=== PATIENT | female | born 1990 | race Caucasian/White ===

== ENCOUNTER 2018-02-08 09:08 | Outpatient (CLI) | payer BC ==
[~2018-02-08] VITALS: Ht 167.6 cm; Wt 86.2 kg
[2018-02-09] MEDS ORDERED: OXYC-197 PO (12:40)
== END 2018-02-08 12:36 ==
LOC: PREOP 09:08
PROVIDERS: ATTEND Obstetrics & Gynecology
DX: Z01.818 Encounter for other preprocedural examination (principal)

== ENCOUNTER 2018-02-09 11:45 | Day surgery (SDC) | payer BC ==
[~2018-02-09] VITALS: Ht 167.6 cm; Wt 86.2 kg
--- OUTSIDE RECORDS SUMMARY | 2018-02-09 11:48 | XMS REPORT ---
Author Author Gianfranco Hidalgo [facility] Address [address] [place], [place] [id number] Care Team Providers Care Door Core Assembler Name Role Phone Gianfranco Hidalgo PCP Allergies and Adverse Reactions Name Reaction Notes NO KNOWN DRUG ALLERGIES Plan of Treatment Planned Activity Comments Planned Date Planned Time Plan/Goal Thyroid stimulating hormone (TSH) 11/19/2011 12:00 AM Thyroxine (T4); total 11/19/2011 12:00 AM Insulin Level 11/19/2011 12:00 AM Medications Active Name Start Date Estimated Completion Date SIG Comments Prozac 40 mg oral capsule Vyvanse 30 mg oral capsule 07/29/2016 08/28/2016 take 1 capsule (30 mg) by oral route once daily in the morning for 30 days Name Start Date Expiration Date SIG Comments Sprintec (28) Oral Tablet 0.25-35 mg-mcg 09/17/2009 08/19/2010 take 1 tablet by oral route once daily Phentermine Oral Tablet 37.5 mg 11/19/2011 12/19/2011 take 1 tablet (37.5 mg/ day) by oral route once daily before breakfast for 30 days Discontinued Name Start Date Discontinued Date SIG Comments Claritin-D 24 Hour Oral Tablet Sustained Release hr 10-240 mg 09/24/20092011 take 1 tablet by oral route once daily Xulane 150-35 mcg/24 hr transdermal patch weekly 06/03/2016 07/29/2016 apply 1 patch by transdermal route once weekly for 3 weeks Xulane 150-35 mcg/24 hr transdermal patch weekly 06/03/2016 07/29/2016 apply 1 patch by transdermal route once weekly for 3 weeks did not like sideeffects Problem List Not available. Vital Signs Date Time BP-Sys(mm[Hg] BP-Maricel(mm[Hg]) HR(bpm) RR(rpm) Temp WT HT HC BMI BSA BMI Percentile O2 Sat(%) 07/29/2016 10:45:00 AM 124 mmHg 88 mmHg 84 bpm 97 F 207 lbs 66 in 33.41 kg/m2 2.09 m2 98 % 06/03/2016 11:23:00 AM 119 mmHg 78 mmHg 56 bpm 18 rpm 98.3 F 206 lbs 66.5 in 32.7508 kg/m 2.0938 m 11/19/2011 1:34:00 PM 118 mmHg 60 mmHg 70 bpm 18 rpm 98.1 F 156 lbs 65 in 25.96 kg/m2 1.80 m2 09/24/2009 3:16:00 PM 102 mmHg 64 mmHg 68 bpm 20 rpm 98.2 F 167 lbs 65 in 27.79 kg/m 1.8639 m 90.1 % 09/17/2009 2:53:00 PM 109 mmHg 75 mmHg 98 bpm 165 lbs 65 in 27.46 kg/m2 1.85 m2 89.3 % Social History Name Description Comments denies alcohol use Tobacco Never smoker History of Procedures Date Ordered Description Order Status 09/17/2009 12:00 AM N. GONORRHOEAE ASSAY W/OPTIC Reviewed 09/17/2009 12:00 AM CHLAMYDIA CULTURE Reviewed 09/17/2009 12:00 AM SMEAR WET MOUNT SALINE/INK Reviewed 09/17/2009 12:00 AM CYTOPATH C/V MANUAL Reviewed 09/17/2009 12:00 AM N. GONORRHOEAE ASSAY W/OPTIC Reviewed 09/17/2009 12:00 AM CHYLMD TRACH AG EIA Reviewed 09/17/2009 12:00 AM SMEAR WET MOUNT SALINE/INK Reviewed 06/03/2016 12:03 PM URINE TEST Reviewed 09/17/2009 12:00 AM N.GONORRHOEAE DNA AMP PROB Reviewed Results Summary Data and Description Results 09/17/2009 3:54 PM WET PREP NO TRICHOMONADS SEEN No GC Cultured No Yeast Seen 06/03/2016 12:03 PM Test, Urine negative History Of Immunizations Not available. History of Past Illness Name Date of Onset Comments Routine gynecological examination Sep 17 2009 2:58PM Contraception, Oral Prescription Sep 17 2009 2:58PM Eustachian Tube Dysfunction Sep 24 2009 3:20PM Anxiety Dietary Counseling Nov 19 2011 1:36PM Exercise Counseling Nov 19 2011 1:36PM Weight Gain, Abnormal Nov 19 2011 1:36PM Contraceptive Management Jun 03 2016 11:28AM Attention deficit hyperactivity disorder (ADHD), combined type Jul 29 2016 10: 52AM Payers Insurance Name Company Name Plan Name Plan Number Policy Number Policy Group Number Start Date [employer] [place] [id number] N/A [employer] [place] [id number] August [facility] [employer] [id number] Friday, 2010 History of Encounters Visit Date Visit Type Provider 07/29/2016 Office visit Gianfranco Hidalgo APRN 06/03/2016 Office visit Renea Dutton APRN 11/19/2011 Office visit Joseph Cason DO 09/24/2009 Office visit Samantha GASPAR 09/17/2009 Office visit 09/17/2009 Office visit Sonido Syed MD
--- OUTSIDE RECORDS SUMMARY | 2018-02-09 11:48 | XMS REPORT ---
Author Author Renea Dutton [facility] Address [address] [place], [place] [id number] Care Team Providers Care Systems Trainer Name Role Phone Renea Dutton PCP Unavailable Allergies and Adverse Reactions Name Reaction Notes NO KNOWN DRUG ALLERGIES Plan of Treatment Planned Activity Comments Planned Date Planned Time Plan/Goal Thyroid stimulating hormone (TSH) 11/19/2011 12:00 AM Thyroxine (T4); total 11/19/2011 12:00 AM Insulin Level 11/19/2011 12:00 AM Medications Active Name Start Date Estimated Completion Date SIG Comments Prozac 40 mg oral capsule Xulane 150-35 mcg/24 hr transdermal patch weekly 06/03/2016 08/05/2016 apply 1 patch by transdermal route once weekly for 3 weeks Name Start Date Expiration Date SIG Comments [...] 1 tablet by oral route once daily Problem List Not available. Vital Signs Date Time BP-Sys(mm[Hg] BP-Maricel(mm[Hg]) HR(bpm) RR(rpm) Temp WT HT HC BMI BSA BMI Percentile O2 Sat(%) 06/03/2016 11:23:00 AM 119 mmHg 78 mmHg 56 bpm 18 rpm 98.3 F 206 lbs 66.5 in 32.75 kg/m2 2.09 m2 11/19/2011 1:34:00 PM 118 mmHg 60 mmHg 70 bpm 18 rpm 98.1 F 156 lbs 65 in 25.9595 kg/m 1.8014 m 09/24/2009 3:16:00 PM 102 mmHg 64 mmHg 68 bpm 20 rpm 98.2 F 167 lbs 65 in 27.79 kg/m2 1.86 m2 90.1 % 09/17/2009 2:53:00 PM 109 mmHg 75 mmHg 98 bpm 165 lbs 65 in 27.4572 kg/m 1.8527 m 89.3 % Social History Name Description Comments [...] 1:36PM Contraceptive Management Jun 03 2016 11:28AM Payers Insurance Name Company Name Plan Name Plan Number Policy Number Policy Group Number Start Date [facility] [employer] [id number] Friday, 2010 [facility] [id number] August History of Encounters Visit Date Visit Type Provider 06/03/2016 Office visit Renea Dutton DIE CUT OPERATOR 11/19/2011 Office visit Joseph Cason DO 09/24/2009 Office visit Samantha GASPAR 09/17/2009 Office visit 09/17/2009 Office visit Sonido Syed MD
--- OUTSIDE RECORDS SUMMARY | 2018-02-09 11:48 | XMS REPORT ---
Author Author Gianfranco Hidalgo [facility] Address [address] [place], [place] [address] Care Team Providers Care Automobile Mechanic Motor Name Role Phone Gianfranco Hidalgo PCP Allergies and Adverse Reactions Name Reaction Notes NO KNOWN DRUG ALLERGIES Plan of Treatment Not available. Medications Active Name Start Date Estimated Completion Date SIG Comments Xulane 150-35 mcg/24 hr transdermal patch weekly 10/16/2016 06/25/2017 apply 1 patch by transdermal route once weekly for 3 weeks Prozac 40 mg oral capsule 01/01/2017 05/01/2017 take 1 capsule (40 mg) by oral route once daily for 30 days Vyvanse 50 mg oral capsule 01/01/2017 01/31/2017 take 1 capsule by oral route daily for 30 days Name Start Date Expiration [...] weeks did not like sideeffects Problem List Description Status Onset Anxiety and depression Active 09/02/2016 Attention deficit hyperactivity disorder (ADHD), combined type Active 2016 Vital Signs Date Time BP-Sys(mm[Hg] BP-Maricel(mm[Hg]) HR(bpm) RR(rpm) Temp WT HT HC BMI BSA BMI Percentile O2 Sat(%) 01/01/2017 8:31:00 AM 120 mmHg 70 mmHg 84 bpm 16 rpm 96.5 F 197 lbs 66 in 31.80 kg/m2 2.04 m2 99 % 10/13/2016 2:26:00 PM 114 mmHg 65 mmHg 70 bpm 97.9 F 198 lbs 66 in 31.9577 kg/m 2.0451 m 08/26/2016 11:07:00 AM 118 mmHg 66 mmHg 84 bpm 19 rpm 98.7 F 198.6 lbs 66 in 32.05 kg/m2 2.05 m2 98 % 07/29/2016 10:45:00 AM 124 mmHg 88 mmHg 84 bpm 97 F 207 lbs 66 in 33.4103 kg/m 2.091 m 98 % 06/03/2016 11:23:00 AM 119 mmHg [...] Reviewed 06/03/2016 12:03 PM URINE TEST Reviewed 10/13/2016 12:00 AM SPECIMEN HANDLING OFFICE-LAB Reviewed 10/13/2016 12:00 AM CYTOPATH C/V THIN LAYER Reviewed 09/17/2009 12:00 AM N.GONORRHOEAE DNA AMP PROB Reviewed Results Summary Date and Description Results 09/17/2009 3:54 PM WET PREP NO TRICHOMONADS SEEN No GC Cultured No Yeast Seen 06/03/2016 12:03 PM Test, Urine negative History Of Immunizations Not available. History of Past Illness Name Date of Onset Comments Routine gynecological examination Sep 17 2009 2:58PM Contraception, Oral Prescription Sep 17 2009 2:58PM Eustachian Tube Dysfunction Sep 24 2009 3:20PM Anxiety Anxiety and depression 09/02/2016 Attention deficit hyperactivity disorder (ADHD), combined type 09/02/2016 Dietary Counseling Nov 19 2011 1:36PM Exercise Counseling Nov 19 2011 1:36PM Weight Gain, Abnormal Nov 19 2011 1:36PM Contraceptive Management Jun 03 2016 11:28AM Attention deficit hyperactivity disorder (ADHD), combined type Jul 29 2016 10: 52AM Attention deficit hyperactivity disorder (ADHD), combined type Aug 26 2016 11: 10AM Anxiety disorder, unspecified Aug 26 2016 11:10AM Major depressive disorder, single episode, unspecified Aug 26 2016 11:10AM Routine gynecological examination Oct 13 2016 2:29PM Contraceptive education Oct 13 2016 2:29PM Attention deficit hyperactivity disorder (ADHD), combined type Jan 01 2017 8: 32AM Anxiety disorder, unspecified Jan 01 2017 8:32AM Major depressive disorder, single episode, unspecified Jan 01 2017 8:32AM Payers Insurance Name Company Name Plan Name Plan Number Policy Number Policy Group Number Start Date [employer] [place] [id number] N/A [employer] [place] [id number] August [facility] [employer] [id number] Friday, 2010 [employer] [place] [id number] N/A History of Encounters Visit Date Visit Type Provider 01/01/2017 Office visit Gianfranco Hidalgo APRN 10/13/2016 Office visit Renea Dutton BUCKET WASH OPERATOR 08/26/2016 Office visit Gianfranco Hidalgo BUCKET WASH OPERATOR 07/29/2016 Office visit Gianfranco Hidalgo BUCKET WASH OPERATOR 06/03/2016 Office visit Renea Dutton BUCKET WASH OPERATOR 11/19/2011 Office visit Joseph Cason DO 09/24/2009 Office visit Samantha GASPAR 09/17/2009 Office visit 09/17/2009 Office visit Sonido Syed MD
--- OUTSIDE RECORDS SUMMARY | 2018-02-09 11:49 | XMS REPORT ---
Author Author Gianfranco Hidalgo [facility] Address [address] [place], [place] [id number] Care Team Providers Care Operational Review Sergeant Name Role Phone Gianfranco Hidalgo PCP Allergies and Adverse Reactions Name Reaction Notes NO KNOWN DRUG ALLERGIES Plan of Treatment Planned Activity Comments Planned Date Planned Time Plan/Goal Thyroid stimulating hormone (TSH) 11/19/2011 12:00 AM Thyroxine (T4); total 11/19/2011 12:00 AM Insulin Level 11/19/2011 12:00 AM Medications Active Name Start Date Estimated Completion Date SIG Comments Prozac 40 mg oral capsule 08/26/2016 09/25/2016 take 1 capsule (40 mg) by oral route once daily for 30 days Vyvanse 50 mg oral capsule 08/26/2016 09/25/2016 take 1 capsule by oral route daily [...] HC BMI BSA BMI Percentile O2 Sat(%) 08/26/2016 11:07:00 AM 118 mmHg 66 mmHg [...] single episode, unspecified Aug 26 2016 11:10AM Payers Insurance Name Company Name Plan Name Plan Number Policy Number Policy Group Number Start Date [employer] [place] [id number] N/A [employer] [place] [id number] August [facility] [employer] [id number] Friday, 2010 History of Encounters Visit Date Visit Type Provider 08/26/2016 Office visit Gianfranco Hidalgo FELTING MACHINE OPERATOR 07/29/2016 Office visit Gianfranco Hidalgo FELTING MACHINE OPERATOR 06/03/2016 Office visit Renea Dutton FELTING MACHINE OPERATOR 11/19/2011 Office visit Joseph Cason DO 09/24/2009 Office visit Samantha GASPAR 09/17/2009 Office visit 09/17/2009 Office visit Sonido Syed MD
--- OUTSIDE RECORDS SUMMARY | 2018-02-09 11:49 | XMS REPORT | Continuity of Care Document ---
Author Author [facility] Organization [facility] Address Unknown Phone Unavailable Allergies Active Description Code Type Severity Reaction Onset Reported/Identified Relationship to Patient Clinical Status Yes tramadol [id number] Drug Allergy Mild RASH 02/08/2018 Medications There is no data. Problems There is no data. Procedures There is no data. Results There is no data. Encounters ACCT No. Visit Date/Time Discharge Status Pt. Type Provider Facility Loc./Unit Complaint [id number] 01/01/2017 09:16:10 01/01/2017 23:59:59 CLS Outpatient Gianfranco Hidalgo [id number] 10/13/2016 15:49:12 10/13/2016 23:59:59 CLS Outpatient Renea Dutton [id number] 08/26/2016 11:59:37 08/26/2016 23:59:59 CLS Outpatient Gianfranco Hidalgo [id number] 07/29/2016 11:38:51 07/29/2016 23:59:59 CLS Outpatient Gianfranco Hidalgo [id number] 06/03/2016 12:12:45 06/03/2016 23:59:59 CLS Outpatient Renea Dutton [id number] 02/08/2018 09:08:00 02/08/2018 12:36:00 DIS Outpatient TIKI FAROOQ MD [facility] PREOP MISSED AB [id number] 02/09/2018 11:45:00 ACT Outpatient TIKI FAROOQ MD [facility] SDC MISSED AB
[2018-02-09] MEDS ORDERED: LACTATED RINGERS 1,000 ML IV PRN (11:50)
[2018-02-09 12:00] VITALS: BP 95/71
[2018-02-09] MEDS ORDERED: ceFAZolin INJECTION 1,000 MG in NS (IVPB) 50 ML IV ONE (12:00)
[2018-02-09] MEDS ORDERED: LIDOCAINE PF 2% 5 ML (XYLOCAINE) VIAL ONE (12:05)
[2018-02-09] MEDS ORDERED: MIDAZOLAM 2 MG/2 ML (VERSED) VIAL ONE (12:05)
[2018-02-09] MEDS ORDERED: proPOfol 200 MG/20 ML (DIPRIVAN) VIAL IV ONE (12:05)
[2018-02-09] MEDS ORDERED: ONDANSETRON 4 MG/2 ML (SDV) Z0FRAN ONE (12:05)
[2018-02-09] MEDS ORDERED: DEXAMETHASONE 10 MG/ML (DECADRON) 1 ML VIAL ONE (12:05)
[2018-02-09] MEDS ORDERED: fentaNYL INJECTION 100 MCG/2 ML AMP ONE (12:05)
[2018-02-09] MEDS ORDERED: ROCURONIUM 10 MG/ML 5 ML SYRINGE IV ONE (12:16)
[2018-02-09 12:19] LABS: BASOPHILS % (AUTO) 0 % (0-10); EOSINOPHILS # (AUTO) 0.1 10^3/uL (0.0-0.3); EOSINOPHILS % (AUTO) 1 % (0-10); HEMATOCRIT 37 % (35-52); HEMOGLOBIN 13.2 G/DL (11.5-16.0); LYMPHOCYTES # (AUTO) 1.8 X 10^3 (1.0-4.0); LYMPHOCYTES % (AUTO) 23 % (12-44); MEAN CORPUSCULAR HEMOGLOBIN 33 PG (25-34); MEAN CORPUSCULAR HGB CONC 36 G/DL (32-36); MEAN CORPUSCULAR VOLUME 92 FL (80-99); MEAN PLATELET VOLUME 9.7 FL (7.4-10.4); MONOCYTES # (AUTO) 0.6 X 10^3 (0.0-1.0); MONOCYTES % (AUTO) 8 % (0-12); NEUTROPHILS # (AUTO) 5.4 X 10^3 (1.8-7.8); NEUTROPHILS % (AUTO) 68 % (42-75); PLATELET COUNT 279 10^3/uL (130-400); RED CELL DISTRIBUTION WIDTH 11.9 % (10.0-14.5); WHITE BLOOD COUNT 7.9 10^3/uL (4.3-11.0)
[2018-02-09] MEDS ORDERED: FAMOTIDINE 20MG/2ML IV (PEPCID) ONE (12:24)
[2018-02-09] MEDS ORDERED: FAMOTIDINE 20MG/2ML IV (PEPCID) IVP ONE ×2 (12:30→12:45)
--- NOTE | 2018-02-09 12:36 | Progress Note-Pre Operative ---
Pre-Operative Progress Note H&P Reviewed The H&P was reviewed, patient examined and no changes noted. Date Seen by Provider: Feb 09, 2018 Time Seen by Provider: 12:36 Date H&P Reviewed: Feb 09, 2018 Time H&P Reviewed: 12:36 Pre-Operative Diagnosis: Blighted ovum/missed AB TIKI FAROOQ MD Feb 09, 2018 12:36 pm
[2018-02-09] MEDS ORDERED: D5 LR IV SOLUTION 1,000 ML IV SCH (12:37)
--- NOTE | 2018-02-09 12:37 | Progress Note-Post Operative ---
Post-Operative Progess Note Surgeon (s)/Rope Tier (s) Surgeon TIKI FAROOQ MD Rope Tier: None Pre-Operative Diagnosis Blighted ovum/missed AB Post-Operative Diagnosis Same with pathology pending Procedure & Operative Findings Date of Procedure 02/09/18 Procedure Performed/Findings Obstetric D&C Anesthesia Type GETA Estimated Blood Loss Estimated blood loss (mL): 200cc Specimens/Packing Specimens Removed POC/uterine contents Packing: None TIKI FAROOQ MD Feb 09, 2018 12:37
[2018-02-09] MEDS ORDERED: OXYC-197 PO (12:40)
--- NOTE | 2018-02-09 12:41 | Discharge Instructions ---
Discharge Instructions Discharge Medications New, Converted or Re-Newed RX: RX on Chart Patient Instructions Patient Instructions: As directed Return to The Hospital For: As directed Activity & Diet Discharge Diet: No Restrictions Activity as Tolerated: No Orders-Post D/C & Referrals Follow Up Appt: Call to make follow up appt. for patient in 2 weeks. Activity: Rest for 24 hours, than as tolerated. Diet: As tolerated-Clear Liquids only if nauseated. May shower or tub bathe as desired. No driving for 24 hours, no alcoholic beverages for 24 hours, and nothing per vagina (no tampons, douching, or intercourse) for 2 weeks. Patient to return to the clinic as soon as possible for: Temperature greater than 101F, Severe Pain, Foul discharge from incision or vagina, Excessive Bleeding (more than a period). TIKI FAROOQ MD Feb 09, 2018 12:41 pm
[2018-02-09] MEDS ORDERED: KETOROLAC 30 MG/ML VIAL IVP ONE (12:45)
[2018-02-09] MEDS ORDERED: ONDANSETRON 4 MG/2 ML (SDV) Z0FRAN IVP PRN ×2 (12:45→13:15)
[2018-02-09] MEDS ORDERED: PROMETHAZINE INJ 25 MG/ML (PHENERGAN) AMP IM ONE (12:45)
[2018-02-09] MEDS ORDERED: MEPERIDINE (DEMEROL) INJ 100 MG/ML IM ONE (12:45)
[2018-02-09] MEDS ORDERED: oxyCODONE/APAP 5/325MG (PERCOCET 5) TABLET PO PRN ×2 (12:45→14:45)
[2018-02-09] MEDS ORDERED: SEVOFLURANE (ULTANE) 15 ML INHAL SOLN ONE (12:59)
[2018-02-09] MEDS ORDERED: KETOROLAC 30 MG/ML VIAL ONE (13:00)
[2018-02-09] MEDS ORDERED: morphine INJ 10 MG/ML 1ML (SYR OR VIAL) ONE (13:21)
--- NOTE | 2018-02-09 13:24 | Anesthesia-General Post-Op ---
General Patient Condition Mental Status/LOC: Same as Preop Cardiovascular: Satisfactory Nausea/Vomiting: Absent Respiratory: Satisfactory Pain: Controlled Complications: Absent Post Op Complications Complications None Follow Up Care/Instructions Patient Instructions None needed. Anesthesia/Patient Condition Patient Condition Patient is doing well, no complaints, stable vital signs, no apparent adverse anesthesia problems. No complications reported per nursing. ENEIDA TRIVEDI CRNA Feb 09, 2018 13:24
[2018-02-09] MEDS: morphine INJ 10 MG/ML 1ML (SYR OR VIAL) IVP PRN ×2 (13:27→13:35)
[2018-02-09 14:00] VITALS: BP 103/75
[2018-02-09 14:30] VITALS: BP 92/60
[2018-02-09 15:00] VITALS: BP 100/68
--- NOTE | 2018-02-09 20:07 | OPERATIVE REPORT ---
DATE OF SERVICE: 02/09/2018 PREOPERATIVE DIAGNOSIS: Missed /blighted ovum. POSTOPERATIVE DIAGNOSIS: Missed /blighted ovum. OPERATIVE PROCEDURE: D and C/obstetric D and C. OPERATIVE PROCEDURE: With the patient in the supine position under satisfactory general anesthesia, she was repositioned in dorsal lithotomy position in the [facility][note 3] stirrups and prepped and draped in the usual fashion for vaginal surgery. Weighted speculum was placed in posterior fornix of the vagina. Cervix exposed and grasped anteriorly with single tooth tenaculum. Uterus was sounded to 9.5 cm with uterine sound. The cervix was then serially dilated with Maikel dilators to #20 Maikel and then a #19 Hegar dilator was the final step in dilation. A #10 curved suction curette was introduced and the endometrial cavity curettaged with removal of a large amount of trophoblastic and decidual appearing tissue as well as blood clot, amniotic fluid and debris. The endometrial cavity was then sharply curettaged in all 4 quadrants to good uterine cry. Curved suction curette was reintroduced. All blood clot and debris evacuated from the uterus. The tenaculum was removed from the cervix. There was no bleeding from the tenaculum site. There was minimal bleeding at the cervical os. The uterus was decreased in size to between 8 and 10-week size from its 10 to 12 week or bigger size prior to the procedure. The uterus contracted nicely and there was minimal postoperative bleeding. Sponge and needle counts were correct. Estimated blood loss was approaching 200 mL. The patient tolerated the procedure well and was uneventfully awakened from her general anesthesia and transferred to recovery room in stable condition with plans for discharge home PAR. Job ID: [id number] DocumentID: [id number] Dictated Date: 02/09/2018 13:00:58 Fire Prevention Engineer Date: 02/09/2018 20:07:00 Dictated By: TIKI FAROOQ MD
== END 2018-02-09 15:00 | disposition home or self-care (01) ==
LOC: SDC 11:45
PROVIDERS: ATTEND Obstetrics & Gynecology
DX: O02.1 Missed abortion (principal)
CPT/HCPCS: 36415; 85025; 87081

== ENCOUNTER 2018-10-22 18:09 | Emergency (ER) | payer BC ==
[~2018-10-22] VITALS: Ht 167.6 cm; Wt 86.2 kg
[~2018-10-22 18:09] MED LIST: OXYC1TAB87 PO
[2018-10-22 18:20] VITALS: BP 118/81
[2018-10-22 18:27] LABS: BILIRUBIN,URINE NEGATIVE (NEGATIVE); CLARITY,URINE CLEAR; COLOR,URINE YELLOW; GLUCOSE, URINE (UA) NEGATIVE (NEGATIVE); KETONES,URINE NEGATIVE (NEGATIVE); LEUKOCYTE ESTERASE ,URINE 1+ (NEGATIVE); NITRITE,URINE NEGATIVE (NEGATIVE); PH,URINE 5 (5-9); PROTEIN,URINE NEGATIVE (NEGATIVE); UROBILINOGEN,URINE NORMAL (NORMAL)
[2018-10-22 18:38] LABS: BACTERIA,URINE TRACE /HPF; SQUAMOUS EPITHELIAL CELL,UR 0-2 /HPF; WBC,URINE RARE /HPF
--- OUTSIDE RECORDS SUMMARY | 2018-10-22 18:46 | XMS REPORT ---
Author Author [facility] Address [address] [place] [address] Care Team Providers Care Esthetics Instructor Name Role Phone DAO SANABRIA Unavailable PROBLEMS Type Condition ICD9-CM Code [id number] Code Onset Dates Condition Status SNOMED Code Problem Attention deficit disorder (ADD) in adult F98.8 Active 470483529 Problem History of attention deficit disorder Z86.59 Active 884336377 ALLERGIES Substance Reaction Event Type Date Status TRAMADOL RASH Non Drug Allergy May, Active ENCOUNTERS Encounter Location Date Diagnosis [facility] [address] [id number] [place] [address] Jun BMI 40.0-44.9, adult Z68.41 and Attention deficit disorder (ADD) in adult F98.8 [facility] [id number] [place] [address] May Attention deficit disorder (ADD) in adult F98.8 [facility] [id number] [place] [address] Mar History of attention deficit disorder Z86.59 IMMUNIZATIONS No Known Immunizations SOCIAL HISTORY Never Assessed REASON FOR VISIT Establish Care Follow Up-Patient states 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 Ara RN PLAN OF CARE Activity Details Follow Up 4 Weeks Reason:ADD f/u VITAL SIGNS Height 5'6 in 2018-05-31 Weight 212.3 lbs 2018-05-31 Temperature 99.0 degrees Fahrenheit 2018-05-31 Heart Rate 106 bpm 2018-05-31 Respiratory Rate 18 2018-05-31 BMI 41.46 kg/m2 2018-05-31 Blood pressure systolic 110 mmHg 2018-05-31 Blood pressure diastolic 62 mmHg 2018-05-31 MEDICATIONS Medication Instructions Dosage Frequency Start Date End Date Duration Status Vyvanse 70 MG Orally Once a day 1 capsule in the morning 24h May, 28 days Active RESULTS No Results PROCEDURES No Known procedures INSTRUCTIONS MEDICATIONS ADMINISTERED No Known Medications MEDICAL (GENERAL) HISTORY Type Description Date Medical History ADD Medical History SOCIAL ANXIETY Surgical History D&C 01/2018 Surgical History TONSILECTOMY 10 YEARS OLD Surgical History LEFT FOOT SURGERY 2008
--- OUTSIDE RECORDS SUMMARY | 2018-10-22 18:46 | XMS REPORT | Continuity of Care Document ---
Author Author [facility] Address Unknown Phone Unavailable Allergies Active Description Code Type Severity Reaction Onset Reported/Identified Relationship to Patient Clinical Status Yes tramadol [id number] Drug Allergy Mild RASH 02/08/2018 Yes tramadol [id number] Drug Allergy Mild RASH, Pt has re 02/09/2018 Medications There is no data. Problems Date Dx Coded Attending Type Code Diagnosis Diagnosed By 02/09/2018 TIKI FAROOQ MD, Ot O02.1 MISSED 02/09/2018 TIKI FAROOQ MD Ot Z01.818 ENCOUNTER FOR OTHER PREPROCEDURAL EXAMIN 02/10/2018 TIKI FAROOQ MD Ot O02.1 MISSED 02/11/2018 TIKI FAROOQ MD Ot O02.1 MISSED 03/12/2018 TIKI FAROOQ MD, Ot O02.1 MISSED Procedures There is no data. Results Test Result Range Methicillin resistant Staphylococcus aureus (MRSA) screening culture - 12:05 Methicillin resistant Staphylococcus aureus (MRSA) screening culture NEG NRG Complete blood count (CBC) with automated white blood cell (WBC) differential - 02/09/18 12:12 Blood leukocytes automated count (number/volume) 7.9 10*3/uL 4.3-11.0 Blood erythrocytes automated count (number/volume) 4.00 10*6/uL 4.35-5.85 Venous blood hemoglobin measurement (mass/volume) 13.2 g/dL 11.5-16.0 Blood hematocrit (volume fraction) 37 % 35-52 Automated erythrocyte mean corpuscular volume 92 [foz_us] 80-99 Automated erythrocyte mean corpuscular hemoglobin (mass per erythrocyte) 33 pg 25-34 Automated erythrocyte mean corpuscular hemoglobin concentration measurement ( mass/volume) 36 g/dL 32-36 Automated erythrocyte distribution width ratio 11.9 % 10.0-14.5 Automated blood platelet count (count/volume) 279 10*3/uL 130-400 Automated blood platelet mean volume measurement 9.7 [foz_us] 7.4-10.4 Automated blood neutrophils/100 leukocytes 68 % 42-75 Automated blood lymphocytes/100 leukocytes 23 % 12-44 Blood monocytes/100 leukocytes 8 % 0-12 Automated blood eosinophils/100 leukocytes 1 % 0-10 Automated blood basophils/100 leukocytes 0 % 0-10 Blood neutrophils automated count (number/volume) 5.4 10*3 1.8-7.8 Blood lymphocytes automated count (number/volume) 1.8 10*3 1.0-4.0 Blood monocytes automated count (number/volume) 0.6 10*3 0.0-1.0 Automated eosinophil count 0.1 10*3/uL 0.0-0.3 Automated blood basophil count (count/volume) 0.0 10*3/uL 0.0-0.1 PDM - PAIN MGMT (PROFILE 3 WITH CONFIRMATION) - 04/22/18 11:08 Creatinine 67.7 mg/dL > or=20.0 pH 6.00 4.5 - 9.0 Oxidant NEGATIVE mcg/mL <200 Amphetamines NEGATIVE ng/mL <500 medMATCH Amphetamines CONSISTENT NRG Benzodiazepines NEGATIVE ng/mL <100 medMATCH Benzodiazepines CONSISTENT NRG Marijuana Metabolite NEGATIVE ng/mL <20 medMATCH Marijuana Metab CONSISTENT NRG Cocaine Metabolite NEGATIVE ng/mL <150 medMATCH Cocaine Metab CONSISTENT NRG Opiates NEGATIVE ng/mL <100 medMATCH Opiates CONSISTENT NRG Oxycodone NEGATIVE ng/mL <100 medMATCH Oxycodone CONSISTENT NRG COMMENT NRG Encounters ACCT No. Visit Date/Time Discharge Status Pt. Type Provider Facility Loc./Unit Complaint [id number] 01/01/2017 09:16:10 01/01/2017 23:59:59 CLS Outpatient Gianfranco Hidalgo [id number] 10/13/2016 15:49:12 10/13/2016 23:59:59 CLS Outpatient Renea Dutton [id number] 08/26/2016 11:59:37 08/26/2016 23:59:59 CLS Outpatient Gianfranco Hidalgo [id number] 07/29/2016 11:38:51 07/29/2016 23:59:59 CLS Outpatient Gianfranco Hidalgo [id number] 06/03/2016 12:12:45 06/03/2016 23:59:59 CLS Outpatient Renea Dutton [id number] 02/09/2018 11:45:00 02/09/2018 15:00:00 DIS Outpatient TIKI FAROOQ MD [facility] MISSED [id number] 02/08/2018 09:08:00 02/08/2018 12:36:00 DIS Outpatient TIKI FAROOQ MD [facility] PRE [place]ISS[place] AB [id number] 09/15/2018 14:00:00 09/15/2018 23:59:59 CLS Outpatient DAO SANABRIA [facility] [id number] 04/22/2018 10:40:00 Document Registration
--- OUTSIDE RECORDS SUMMARY | 2018-10-22 18:46 | XMS REPORT ---
Author Author DAO [facility]RI[facility] Address [address] [place] [address] Care Team Providers Care Chief Internal Auditor Name Role Phone DAO SANABRIA Unavailable PROBLEMS Type Condition ICD9-CM Code GDD09-CP Code Onset Dates Condition Status SNOMED Code Problem Attention deficit disorder (ADD) in adult F98.8 Active 131426684 Problem History of attention deficit disorder Z86.59 Active 203592163 ALLERGIES Substance Reaction Event Type Date Status TRAMADOL RASH Non Drug Allergy Jun, Active ENCOUNTERS Encounter Location Date Diagnosis [facility] [address] [id number] [place] [address] Jun BMI 40.0-44.9, adult Z68.41 and Attention deficit disorder (ADD) in adult F98.8 [facility] [address] [facility] [id number] [place] [address] May Attention deficit disorder (ADD) in adult F98.8 [facility] [address] [id number] [place] [address] Mar History of attention deficit disorder Z86.59 IMMUNIZATIONS No Known Immunizations SOCIAL HISTORY Never Assessed REASON FOR VISIT Medication Review-Patient states her medication is working well, states she has no complaints. Ara RN PLAN OF CARE Activity Details Follow Up 3 Months Reason:ADD VITAL SIGNS Height 5'6 in 2018-06-28 Weight 206.9 lbs 2018-06-28 Temperature 97.9 degrees Fahrenheit 2018-06-28 Heart Rate 93 bpm 2018-06-28 Respiratory Rate 16 2018-06-28 Oximetry 99 % 2018-06-28 BMI 40.40 kg/m2 2018-06-28 Blood pressure systolic 112 mmHg 2018-06-28 Blood pressure diastolic 80 mmHg 2018-06-28 MEDICATIONS Medication Instructions Dosage Frequency Start Date End Date Duration Status Vyvanse 70 MG Orally Once a day 1 capsule in the morning 24h Jun, 28 days Active RESULTS No Results PROCEDURES No Known procedures INSTRUCTIONS MEDICATIONS ADMINISTERED No Known Medications MEDICAL (GENERAL) HISTORY Type Description Date Medical History ADD Medical History SOCIAL ANXIETY Surgical History D&C 01/2018 Surgical History TONSILECTOMY 10 YEARS OLD Surgical History LEFT FOOT SURGERY 2008
== END 2018-10-22 19:30 | disposition left against medical advice (07) ==
LOC: EDUNIT# 18:09 → ER 18:10
DX: O20.9 Hemorrhage in early pregnancy, unspecified (principal); Z3A.01 Less than 8 weeks gestation of pregnancy
CPT/HCPCS: 81000; 99281

== ENCOUNTER 2019-06-23 06:45 | Inpatient (IN) | payer BC, MEDICAID ==
[2019-06-23] VITALS (78 sets, daily range): BP systolic 63–142; BP diastolic 31–91
[~2019-06-23] VITALS: Ht 167.7 cm; Wt 105.0 kg
--- NOTE | 2019-06-23 06:45 | NUR ---
ANMOL GUERRA presented to unit via AMBULATORY from HOME, accompanied by S/O, with c/o INDUCTION. ANMOL GUERRA weighed, gowned, voided, and to bed. EFHM and TOCO applied, VS taken. ANMOL GUERRA oriented to bed controls, call light, TV, heat, and A/C controls.
[2019-06-23] MEDS ORDERED: MINERAL OIL CONCENTRATE 99.9% 15 ML UDC TOP PRN (07:15)
[2019-06-23] MEDS: D5 LR IV SOLUTION 1,000 ML IV SCH ×2 (07:42→14:18)
[2019-06-23] MEDS ORDERED: OXYTOCIN/NORMAL SALINE 500 ML IV ONE (08:19)
[2019-06-23 08:24] LABS: BASOPHILS % (AUTO) 0 % (0-10); BILIRUBIN,URINE NEGATIVE (NEGATIVE); CLARITY,URINE CLEAR; COLOR,URINE YELLOW; EOSINOPHILS # (AUTO) 0.3 10^3/uL (0.0-0.3); EOSINOPHILS % (AUTO) 3 % (0-10); GLUCOSE, URINE (UA) NEGATIVE (NEGATIVE); HEMATOCRIT 36 % (35-52); HEMOGLOBIN 12.4 G/DL (11.5-16.0); KETONES,URINE NEGATIVE (NEGATIVE); LEUKOCYTE ESTERASE ,URINE NEGATIVE (NEGATIVE); LYMPHOCYTES # (AUTO) 2.2 X 10^3 (1.0-4.0); LYMPHOCYTES % (AUTO) 20 % (12-44); MEAN CORPUSCULAR HEMOGLOBIN 33 PG (25-34); MEAN CORPUSCULAR HGB CONC 35 G/DL (32-36); MEAN CORPUSCULAR VOLUME 95 FL (80-99); MEAN PLATELET VOLUME 10.8 FL (7.4-10.4); MONOCYTES % (AUTO) 9 % (0-12); NEUTROPHILS # (AUTO) 7.6 X 10^3 (1.8-7.8); NEUTROPHILS % (AUTO) 69 % (42-75); NITRITE,URINE NEGATIVE (NEGATIVE); PH,URINE 6.5 (5-9); PLATELET COUNT 264 10^3/uL (130-400); PROTEIN,URINE NEGATIVE (NEGATIVE); RED CELL DISTRIBUTION WIDTH 12.5 % (10.0-14.5)
[2019-06-23] MEDS ORDERED: OXYTOCIN/NORMAL SALINE 500 ML IV SCH ×3 (08:25→19:08)
--- NOTE | 2019-06-23 08:33 | History & Physical ---
History and Physical Date Seen by Provider: Jun 23, 2019 Time Seen by Provider: 08:30 This patient is a 28-year-old A3 white female with an EDC of 11 2619 admitted now 40+ weeks gestation for elective induction of labor. Her has been uncomplicated. She denies rupture membranes or bleeding. Her GBS culture was negative after 35 weeks gestation. Allergies are to trim was causes a rash Medications are vitamins Medical social and surgical histories are per the antepartum record HEENT exam is normal Neck is supple no lymphadenopathy in the thyromegaly Abdomen is gravid soft nontender nondistended Extremities show no clubbing or cyanosis. There is no Homans sign. Pelvic exam shows a cervix 2 cm dilated 80 percent effaced and 0 to -1 station vertex presentation with a cervix that is soft and mid Laboratory Tests 06/23/19 07:30 monitor shows irregular contractions and some uterine irritability with a normal heart rate pattern Assessment and plan 40+ weeks gestation admitted for induction of labor. We anticipate a vaginal delivery. Plan would be for if needed for m aternal or indications. 40+ weeks gestation admitted for elective induction of labor Allergies and Home Medications Allergies Coded Allergies: No Known Drug Allergies (Unverified , 06/23/19) Home Medications Oxycodone HCl/Acetaminophen 1 Each Tablet, 1 EACH PO Q4H Prescribed by: TIKI BILL on 02/09/18 1240 Patient Home Medication List Home Medication List Reviewed: Yes TIKI FAROOQ MD Jun 23, 2019 08:32 POS
[2019-06-23 08:39] LABS: BACTERIA,URINE NEGATIVE /HPF; SQUAMOUS EPITHELIAL CELL,UR 0-2 /HPF
[2019-06-23] MEDS ORDERED: SUFENTA 0.6MCG/ML BUPIVA 0.125 100 ML ONE (09:34)
--- NOTE | 2019-06-23 10:05 | NUR ---
[address] GUILLEN CRNA AND MANN SOLORIO here for epidural placement. Procedure explained, consent reviewed and signed by anesthesia. Questions answered to patient's satisfaction. Time out taken to verify correct patient/procedure. 1008 Patient up to side of bed, assisted into sitting position. 1012 Betadine prep done x3 and sterile drape applied. 1014 Local done, see anesthesia record. 1028 Test dose given, see anesthesia record for drug and dosage. Epidural catheter secured in place. Epidural placement complete. 1032 Assisted back into bed, monitors adjusted. Epidural dosed, see anesthesia record. Epidural of Sufenta/Bupvicaine @12cc/hr stated per pump. Patient tolerated procedure well.
[2019-06-23] MEDS ORDERED: LIDOCAINE PF 2% 5 ML (XYLOCAINE) VIAL ONE (10:06)
[2019-06-23] MEDS ORDERED: BUPIVACAINE 0.25% 30 ML (SENSORCAINE) VIAL ONE (10:06)
[2019-06-23] MEDS ORDERED: fentaNYL INJECTION 100 MCG/2 ML AMP ONE ×2 (10:07→17:32)
[2019-06-23] MEDS ORDERED: EPIDURAL (SUFENTA 0.6MCG/ML BUPIVA 0.125%) 100 ML BAG EPI PRN (10:45)
[2019-06-23] MEDS ORDERED: LACTATED RINGERS 1,000 ML IV ONE ×2 (10:45)
[2019-06-23] MEDS ORDERED: ONDANSETRON 4 MG/2 ML (SDV) Z0FRAN IV PRN (10:45)
[2019-06-23] MEDS ORDERED: NALOXONE 0.4 MG/ML 1 ML (NARCAN) VIAL IV PRN (10:45)
[2019-06-23] MEDS ORDERED: CATHETER FLUSH 10 ML SYR IV SCH (14:00)
[2019-06-23] MEDS ORDERED: LIDOCAINE/EPI 2% 1:200,00 (XYLOCAINE) 10 ML VIAL ONE ×2 (14:15→16:49)
--- NOTE | 2019-06-23 18:36 | OPERATIVE REPORT ---
DATE OF SERVICE: 06/23/2019 The patient delivered by term spontaneous vaginal delivery a viable female infant with Apgars of 8 and 9 at 1 and 5 minutes respectively. Weight is pending. Cord blood pH is pending. time of 1707. The delivered over an intact perineum under epidural analgesia augmented with some local in the perineum. The infant delivered almost straight away. She was bulb suctioned on delivery of the head and again on completion of delivery. Umbilical cord when pulseless was doubly clamped, father cut the cord, the baby was passed to mom's abdomen. The placenta descended partially through the cervix and then stalled there and was obviously densely attached to the uterus. Could palpate the dome of the uterus beginning to invert as the placenta was trying to come through the cervix manually detached the placenta from the fundus of the uterus, which was already in a prolapsed partially through the cervix with the placenta removed. The uterine inversion that was occurring was halted and with some difficulty the uterus was reoriented. There was obvious placental tissue retained in the uterus. The placenta was examined. The midportion of the placenta was missed and several cotyledons, one of those were removed manually. The balance of it was removed with curettaged using a Danny's curette. The patient tolerated this reasonably well. She did receive 50 mg of fentanyl in her IV and two doses of 25 mcg for pain tolerance for the uterine exploration and curettage. With that done, the bleeding came to a fairly normal level. Estimated blood loss at this point was 500 mL. The patient was comfortable with the baby on her chest. Sponge and needle counts were correct. The vagina was examined and was intact, except for a superficial abrasion at about the 5 o'clock position of the hymenal ring. The rectum and perineal body were intact. Sponge and needle counts were correct on completion of the delivery, placental extraction and exam. Again, estimated blood loss was around 500 mL totally at this point. The patient remained in the LDR for recovery. The baby remained with the mom. Job ID: [id number] DocumentID: [id number] Dictated Date: 06/23/2019 17:52:48 Grey Percher Date: 06/23/2019 18:35:28 Dictated By: TIKI FAROOQ MD
--- NOTE | 2019-06-23 19:00 | NUR ---
REFER TO LABOR FLOW SHEET.
[2019-06-23] MEDS ORDERED: KETOROLAC 30 MG/ML VIAL IVP SCH (19:15)
[2019-06-23] MEDS ORDERED: BENZOCAINE/MENTHOL (DERMOPLAST) 56 ML CAN TP PRN (19:15)
[2019-06-23] MEDS ORDERED: ONDANSETRON 4 MG/2 ML (SDV) Z0FRAN IVP PRN (19:15)
[2019-06-23] MEDS ORDERED: TETANUS,DIPTH,PERTUSS P/F (BOOSTRIX) 0.5 ML VIAL IM ONE (19:15)
[2019-06-23] MEDS ORDERED: MEASLES,MUMPS,RUBELLA 1 EA INJ SC ONE (19:15)
--- NOTE | 2019-06-23 19:20 | NUR ---
Pt laying in labor bed, infant. Family members at side. Discussed POC, pt verbalized understanding. Denies needing anything at time.
[2019-06-23] MEDS: DOCUSATE SODIUM 100 MG (COLACE) CAP PO SCH (19:50)
--- NOTE | 2019-06-23 20:00 | NUR ---
Pt states is ready to move to room. Able to move legs upon assessment. Pericare performed per this RN. New pad and underwear in place. Pt assisted into new gown. Scheduled medication given. Pt assisted into wheelchair. To room at time with this RN and family members at side. Pt assisted into bed. Oriented to new room. [place] tray given per request. Pt denies needing anything further at time.
[2019-06-24] VITALS: BP 112/58
[2019-06-24] MEDS: IBUPROFEN 800 MG (MOTRIN) TAB PO SCH ×4 (02:02→21:04)
[2019-06-24 04:10] VITALS: BP 105/70
[2019-06-24] MEDS: oxyCODONE/APAP 5/325MG (PERCOCET 5) TABLET PO PRN ×3 (05:14→13:45)
[2019-06-24] MEDS: DOCUSATE SODIUM 100 MG (COLACE) CAP PO SCH ×2 (08:14→21:04)
[2019-06-24 08:15] VITALS: BP 117/70
--- NOTE | 2019-06-24 08:15 | NUR ---
A.M. ASSESSMENT COMPLETED. VSS. JUST FINISHED . C/O POSTERIOR PELVIC AND GENITAL PAIN.
[2019-06-24] MEDS ORDERED: WITCH HAZEL(TUCKS) 40 EA JAR TOP PRN (08:30)
[2019-06-24] MEDS ORDERED: DIBUCAINE (NUPERCAINAL) 1% OINT 30 GM TOP PRN (08:30)
--- NOTE | 2019-06-24 08:58 | NUR ---
DR. FAROOQ HERE TO SEE PT.
--- NOTE | 2019-06-24 09:10 | NUR ---
OSMIN FROM ANESTHESIA HERE TO ROUND ON PT.
--- NOTE | 2019-06-24 09:18 | Progress Note ---
Standard Progress Note Progress Notes/Assess & Plan Date Seen by a Provider: Jun 24, 2019 Time Seen by a Provider: 09:16 Progress/Assessment & Plan Patient is without complaint. She is ambulating, voiding, tolerating oral intake well has good pain control. She denies chest pain, denies shortness of breath, denies nausea vomiting, denies headache. Vital Signs 06/24/19 08:15 Temp 37.2 Pulse 112 Resp 18 B/P (MAP) 117/70 (86) Pulse Ox 98 O2 Delivery Room Air I signs are stable. Patient is afebrile. The abdomen is benign. The fundus is firm below the umbilicus and nontender. Extremities show no clubbing or cyanosis. There is no Homans sign. Assessment and plan number 1 status post term spontaneous vaginal delivery doing well. Patient did have retained placenta and a somewhat protracted third stage of labor manual and mechanical extraction of a retained / placenta acreta. The patient appears to have no adverse sequelae to the manual extraction and curettage at this point Final Diagnosis 40 week spontaneous vaginal delivery TIKI FAROOQ MD Jun 24, 2019 09:18 POS
[2019-06-24] MEDS ORDERED: DOCU100C37 PO (09:21)
[2019-06-24] MEDS ORDERED: IBUP-1780 PO (09:21)
[2019-06-24] MEDS ORDERED: OXYC1TAB87 PO (09:21)
--- NOTE | 2019-06-24 09:21 | Discharge Instructions ---
Discharge Instructions Discharge Medications New, Converted or Re-Newed RX: RX on Chart Patient Instructions Return to The Hospital For: As directed Activity & Diet Discharge Diet: No Restrictions Activity as Tolerated: No Orders-Post D/C & Referrals Follow Up Appt: Call to make follow up appt. for patient in 4 weeks. Activity Per routine post vaginal delivery instructions. Please call in RX to patient pharmacy. Diet as tolerated Patient may shower or tub bathe as desired. TIKI FAROOQ MD Jun 24, 2019 09:21 POS
--- NOTE | 2019-06-24 09:35 | NUR ---
PT STATES SHE IS FEELING MUCH BETTER WITH THE INTERVENTIONS OF TUCKS, NUPERCAINAL, AND ICE PACK.
--- NOTE | 2019-06-24 10:59 | Anesthesia-Regional Post-Op ---
Regional Patient Condition Mental Status: Alert, Oriented x3 Circulation: Same as Pre-Op Headache: Absent Sensation: Full Recovery Motor Block: Absent Post Op Complications Complications None Follow Up Care/Instructions Patient Instructions None needed. Anesthesia/Patient Condition Patient is doing well, no complaints, stable vital signs, no apparent adverse anesthesia problems. No complications reported per nursing. LATASHA COLLIER CRNA Jun 24, 2019 10:59 POS
--- NOTE | 2019-06-24 11:00 | NUR ---
CONTINUES TO CARE FOR IN ROOM. GOOD INTERACTION NOTED.
--- NOTE | 2019-06-24 12:30 | NUR ---
SLEEPING. ROOM DARK.
[2019-06-24 13:00] VITALS: BP 119/79
--- NOTE | 2019-06-24 13:48 | NUR ---
INFANT. PAIN MEDS FOR C/O ABD CRAMPING.
--- NOTE | 2019-06-24 16:15 | NUR ---
SLEEPING AT THIS TIME. INFANT ASLEEP IN ROOM.
[2019-06-24 17:00] VITALS: BP 110/58
--- NOTE | 2019-06-24 17:55 | NUR ---
EATING DINNER. STATES FEELING BETTER. SPOUSE WENT HOME FOR AWHILE.
--- NOTE | 2019-06-24 18:55 | NUR ---
ICE PACK GIVEN FOR PERINEUM AND WARM BLANKETS FOR ABD CRAMPING.
[2019-06-24 21:04] VITALS: BP 114/77
[2019-06-25] MEDS: oxyCODONE/APAP 5/325MG (PERCOCET 5) TABLET PO PRN (00:08)
[2019-06-25 03:48] VITALS: BP 129/85
[2019-06-25] MEDS: IBUPROFEN 800 MG (MOTRIN) TAB PO SCH ×2 (03:48→08:58)
--- NOTE | 2019-06-25 07:50 | NUR ---
DR. FAROOQ HERE TO SEE PT.
[2019-06-25 08:00] VITALS: BP 124/77
--- NOTE | 2019-06-25 08:00 | Progress Note ---
Standard Progress Note Progress Notes/Assess & Plan Date Seen by a Provider: Jun 25, 2019 Time Seen by a Provider: 07:58 Progress/Assessment & Plan Patient is without complaint. She is ambulating, voiding, tolerating oral intake well has good pain control. She denies chest pain, denies shortness of breath, denies nausea vomiting, denies headache. Vital Signs 06/24/19 08:15 Temp 37.2 Pulse 112 Resp 18 B/P (MAP) 117/70 (86) Pulse Ox 98 O2 Delivery Room Air I signs are stable. Patient is afebrile. The abdomen is benign. The fundus is firm below the umbilicus and nontender. Extremities show no clubbing or cyanosis. There is no Homans sign. Assessment and plan number 1 status post term spontaneous vaginal delivery doing well. Patient did have retained placenta and a somewhat protracted third stage of labor manual and mechanical extraction of a retained / placenta acreta. The patient appears to have no adverse sequelae to the manual extraction and curettage at this point June 25, 2015 This patient is without complaint. She is ambulating, voiding, tolerating oral intake well has good pain control. Vital Signs Date Time Temp Pulse Resp B/P (MAP) Pulse Ox O2 Delivery O2 Flow Rate FiO2 06/25/19 03:48 36.4 87 18 129/85 (100) 100 Room Air 06/24/19 21:04 36.8 84 18 114/77 (89) 98 Room Air 06/24/19 17:00 36.9 92 18 110/58 (75) 98 Room Air 06/24/19 13:00 37.2 111 18 119/79 (92) 98 Room Air 06/24/19 08:15 37.2 112 18 117/70 (86) 98 Room Air Vital signs are stable. Patient is afebrile Fundus is firm below the umbilicus and nontender. Extremities show no clubbing or cyanosis. There is no Homans sign. Assessment and plan post day number 2 plan is for discharge home Final Diagnosis 40+ week spontaneous vaginal delivery TIKI FAROOQ MD Jun 25, 2019 08:00 POS
--- NOTE | 2019-06-25 08:00 | NUR ---
A.M. ASSESSMENT COMPLETED. VSS. DENIES PAIN AT THIS TIME. ANXIOUS TO GO HOME.
[2019-06-25] MEDS: DOCUSATE SODIUM 100 MG (COLACE) CAP PO SCH (08:58)
--- NOTE | 2019-06-25 09:15 | NUR ---
DISCHARGE INSTRUCTIONS REVIEWED WITH COPY TO PT. STATES UNDERSTANDING OF ALL INSTRUCTIONS AND NEED TO F/U SCHEDULED AND NEEDED.
[2019-06-25 10:35] VITALS: BP 124/77
--- NOTE | 2019-06-25 10:35 | NUR ---
DISMISSED AMB FROM [facility] WITH INFANT TO FAMILY CAR IN STABLE CONDITION ACC BY SPOUSE AND DAO TERRAZAS RN.
== END 2019-06-25 10:35 | disposition home or self-care (01) | DRG 797 ==
LOC: LDRP 06:45
PROVIDERS: ADMIT Obstetrics & Gynecology; ATTEND Obstetrics & Gynecology
PROC: 10E0XZZ Delivery of Products of Conception, External Approach (ICD-10-PCS; principal; 2019-06-23)
PROC: 10D17ZZ Extraction of Products of Conception, Retained, Via Natural or Artificial Opening (ICD-10-PCS; 2019-06-23)
PROC: 3E033VJ Introduction of Other Hormone into Peripheral Vein, Percutaneous Approach (ICD-10-PCS; 2019-06-23)
DX: O48.0 Post-term pregnancy (principal); O63.9 Long labor, unspecified; O71.82 Other specified trauma to perineum and vulva; O73.1 Retained portions of placenta and membranes, without hemorrhage; O99.62 Diseases of the digestive system complicating childbirth; K21.9 Gastro-esophageal reflux disease without esophagitis; Z3A.40 40 weeks gestation of pregnancy; Z37.0 Single live birth
CPT/HCPCS: 36415; 81000; 85025; 86850; 86900; 86901

== ENCOUNTER 2020-05-02 14:23 | Outpatient (CLI) | payer MEDICAID ==
[~2020-05-02] VITALS: Ht 167.6 cm; Wt 92.4 kg
--- NOTE | 2020-05-02 14:20 | NUR ---
NAMOL GUERRA presented to unit via ambulation from ED with c/o VAGINAL BLEEDING/DISCHARGE. Pt. weighed, gowned, voided, and to bed. EFHM and TOCO applied, VS taken. Pt oriented to bed controls, call light, TV, heat, and A/C controls.
[~2020-05-02 14:23] MED LIST changes: +DOCU100C37 PO; +IBUP-1780 PO
[2020-05-02 14:53] LABS: BILIRUBIN,URINE NEGATIVE (NEGATIVE); CLARITY,URINE CLEAR; COLOR,URINE YELLOW; GLUCOSE, URINE (UA) NEGATIVE (NEGATIVE); KETONES,URINE TRACE (NEGATIVE); LEUKOCYTE ESTERASE ,URINE NEGATIVE (NEGATIVE); NITRITE,URINE NEGATIVE (NEGATIVE); PROTEIN,URINE NEGATIVE (NEGATIVE)
[2020-05-02 14:59] VITALS: BP 120/66
[2020-05-02 15:07] LABS: BACTERIA,URINE NEGATIVE /HPF; SQUAMOUS EPITHELIAL CELL,UR 0-2 /HPF
--- NOTE | 2020-05-02 15:11 | NUR ---
lavinia-care offered. no active vaginal bleeding noted by this RN. pt states having vaginal bleeding, not more than spotting, @ 1300. vaginal bleeding x1. 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 upon arrival, UA specimen collected and small "pinpoint" spot of red blood noted on toilet paper. @1446- pt up to BR. no vaginal bleeding noted by pt and reported to RN.
--- NOTE | 2020-05-02 15:12 | NUR ---
SVE per this RN. closed, thick, posterior. no blood noted on exam glove.
--- NOTE | 2020-05-02 15:15 | NUR ---
was called with pt's presenting c/o's. orders received for wet prep. Addendum: 05/02/20 at 1739 by DOMINICK ANN RN if wet prep negative: may d/c to home
--- NOTE | 2020-05-02 15:22 | NUR ---
monitor's dc'd. POC reviewed, states understanding. Addendum: 05/02/20 at 1733 by DOMINICK ANN RN monitor tracing reviewed: FHR 140. variability appropriate for gestation. no ctx's noted. abd soft to palpation.
[2020-05-02 15:26] VITALS: BP 120/66
--- NOTE | 2020-05-02 15:28 | NUR ---
wet prep specimen collected, labeled and sent to lab.
--- NOTE | 2020-05-02 16:07 | NUR ---
dismissal instructions given, verbalizes understanding. instructed pt to follow up as scheduled, has appointment with tomorrow. signature page signed, placed on chart.
--- NOTE | 2020-05-02 16:10 | NUR ---
pt ambulated to private vehicle by self. no sx's of distress noted. pt stable upon dismissal.
--- NOTE | 2020-05-03 08:16 | Physician Query-Final Dx ---
SPIKE SHIRLEY 05/03/20 0816: Clinic Account Progress/Dx Physician Query: Please give diagnosis Please include # weeks gestation Date of Service May 02, 2020 at 14:23 TIKI FAROOQ MD 05/06/20 0750: Clinic Account Progress/Dx DIAGNOSIS: Diagnosis vaginal bleeding at 21 weeks gestation SPIKE SHIRLEY May 03, 2020 08:16 TIKI FAROOQ MD May 06, 2020 07:50
== END 2020-05-02 16:10 | disposition home or self-care (01) ==
LOC: WSo 14:23 → LDRP 14:24 → WSo 16:10
PROVIDERS: ATTEND Obstetrics & Gynecology
DX: O46.90 Antepartum hemorrhage, unspecified, unspecified trimester (principal); Z3A.00 Weeks of gestation of pregnancy not specified
CPT/HCPCS: 81000; 87088; 87210

== ENCOUNTER 2020-08-23 07:00 | Inpatient (IN) | payer MEDICAID ==
[2020-08-23] VITALS (51 sets, daily range): BP systolic 89–132; BP diastolic 54–85
[~2020-08-23] VITALS: Ht 165.1 cm; Wt 95.8 kg
--- NOTE | 2020-08-23 07:05 | NUR ---
ANMOL GUERRA presented to unit via ambulation from ED for scheduled IOL. Pt. weighed, gowned, voided, and to bed. EFHM and TOCO applied, VS taken. Pt. oriented to bed controls, call light, TV, heat, and A/C controls.
[2020-08-23] MEDS ORDERED: D5 LR IV SOLUTION 1,000 ML IV ONE (07:13)
[2020-08-23] MEDS ORDERED: OXYTOCIN PRE-MIX DRIP 500 ML IV ONE (07:13)
[2020-08-23] MEDS: D5 LR IV SOLUTION 1,000 ML IV SCH ×2 (07:24→14:23)
--- NOTE | 2020-08-23 07:24 | NUR ---
#20g IV to Rt.outer wrist x1 attempt by this RN. site patent, secured with opsite. admission labs collected prior to IVF's infusing. see eMar for further.
[2020-08-23] MEDS ORDERED: IBUP-1780 PO (07:25)
[2020-08-23] MEDS ORDERED: DOCU-143 PO (07:25)
[2020-08-23] MEDS ORDERED: OXYC1TAB87 PO (07:25)
--- NOTE | 2020-08-23 07:25 | Discharge Inst-Surgical ---
Discharge Inst-Surgical Depart Medication/Instructions New, Converted or Re-Newed RX: RX on Chart Consults/Follow Up Patient Instructions: vaginal delivery as directed Orders & Referrals Follow Up Appt: Call to make follow up appt. for patient in 4 weeks. Activity Per routine post vaginal delivery instructions. Please call in RX to patient pharmacy. Diet as tolerated Patient may shower or tub bathe as desired. Activity Activity as Tolerated: No Diet Discharge Diet: No Restrictions TIKI FAROOQ MD Aug 23, 2020 07:25
--- NOTE | 2020-08-23 07:27 | History & Physical ---
History and Physical Date Seen by Provider: Aug 23, 2020 Time Seen by Provider: 07:25 This patient is a 29-year-old 2 para 1 white female admitted now at 39+ weeks gestation for elective induction of labor. Her has been uncomplicated. She denies rupture membranes or bleeding. Her GBS culture was negative. Allergies are none Medications are vitamins Medical social and surgical history is all per the antepartum record HEENT exam is normal Neck is supple no lymphadenopathy no thyromegaly Abdomen is gravid soft nontender nondistended Extremities show no clubbing or cyanosis. There is no Homans' sign. Pelvic exam is pending Assessment and plan term admitted for induction of labor. We anticipate a vaginal delivery 39-week elective induction of labor Allergies and Home Medications Allergies Coded Allergies: No Known Drug Allergies (Unverified , 06/23/19) Home Medications Docusate Sodium 100 Mg Capsule, 100 MG PO BID Prescribed by: TIKI BILL on 08/23/20 0725 Ibuprofen 800 Mg Tablet, 800 MG PO Q6H PRN for PAIN Prescribed by: TIKI BILL on 08/23/20 0725 Oxycodone HCl/Acetaminophen 1 Each Tablet, 1 TAB PO Q4H Prescribed by: TIKI BILL on 08/23/20 0725 Patient Home Medication List Home Medication List Reviewed: Yes TIKI FAROOQ MD Aug 23, 2020 07:27
[2020-08-23] MEDS ORDERED: OXYTOCIN PRE-MIX DRIP 500 ML IV SCH ×2 (07:30→16:45)
--- NOTE | 2020-08-23 08:00 | NUR ---
admission paperwork completed.
[2020-08-23 08:01] LABS: BASOPHILS % (AUTO) 0 % (0-10); EOSINOPHILS # (AUTO) 0.2 10^3/uL (0.0-0.3); EOSINOPHILS % (AUTO) 2 % (0-10); HEMATOCRIT 31 % (35-52); HEMOGLOBIN 10.2 g/dL (11.5-16.0); LYMPHOCYTES # (AUTO) 1.8 10^3/uL (1.0-4.0); LYMPHOCYTES % (AUTO) 14 % (12-44); MEAN CORPUSCULAR HEMOGLOBIN 31 pg (25-34); MEAN CORPUSCULAR HGB CONC 33 g/dL (32-36); MEAN CORPUSCULAR VOLUME 94 fL (80-99); MEAN PLATELET VOLUME 10.3 fL (9.0-12.2); MONOCYTES % (AUTO) 8 % (0-12); NEUTROPHILS # (AUTO) 9.5 10^3/uL (1.8-7.8); NEUTROPHILS % (AUTO) 75 % (42-75); PLATELET COUNT 291 10^3/uL (130-400); WHITE BLOOD COUNT 12.7 10^3/uL (4.3-11.0)
[2020-08-23 08:12] LABS: BILIRUBIN,URINE NEGATIVE (NEGATIVE); CLARITY,URINE CLEAR; COLOR,URINE YELLOW; GLUCOSE, URINE (UA) NEGATIVE (NEGATIVE); KETONES,URINE NEGATIVE (NEGATIVE); LEUKOCYTE ESTERASE ,URINE NEGATIVE (NEGATIVE); NITRITE,URINE NEGATIVE (NEGATIVE); PROTEIN,URINE NEGATIVE (NEGATIVE)
[2020-08-23 08:20] LABS: BACTERIA,URINE TRACE /HPF; WBC,URINE RARE /HPF
--- NOTE | 2020-08-23 08:45 | NUR ---
COVID 19 swab collected, labeled and sent to lab.
--- NOTE | 2020-08-23 08:47 | NUR ---
1 liter LR bolus started prior to epidural procedure.
--- NOTE | 2020-08-23 09:18 | NUR ---
anesthesia notified of pt's request for epidural
[2020-08-23] MEDS ORDERED: fentaNYL 2 mcg/ml BUPIVA 0.125 100 ML ONE (09:24)
[2020-08-23] MEDS ORDERED: fentaNYL INJECTION 100 MCG/2 ML AMP ONE (09:24)
[2020-08-23] MEDS ORDERED: BUPIVACAINE 0.25% 30 ML (SENSORCAINE) VIAL ONE (09:24)
[2020-08-23] MEDS ORDERED: NALOXONE 0.4 MG/ML 1 ML (NARCAN) VIAL IV PRN (09:30)
[2020-08-23] MEDS ORDERED: ONDANSETRON 4 MG/2 ML (SDV) Z0FRAN IV PRN (09:30)
[2020-08-23] MEDS ORDERED: CATHETER FLUSH 10 ML SYR IV PRN (09:30)
[2020-08-23] MEDS ORDERED: diphenhydrAMINE 50 MG/ML INJ (BENADRYL) IV PRN (09:30)
[2020-08-23] MEDS ORDERED: LACTATED RINGERS 1,000 ML IV ONE (09:30)
[2020-08-23] MEDS ORDERED: fentaNYL 2 mcg/ml BUPIVA 0.125 100 ML IV SCH (09:30)
--- NOTE | 2020-08-23 10:25 | NUR ---
Update given to Dr. Jin on SVE.
--- NOTE | 2020-08-23 11:22 | NUR ---
called to check on pt's status. update given on SVE. no new orders received.
[2020-08-23] MEDS ORDERED: LIDOCAINE/EPI 2% 1:200,00 (XYLOCAINE) 10 ML VIAL ONE (15:22)
[2020-08-23] MEDS ORDERED: METHYLERGONOVINE 0.2 MG/ML (METHERGINE) AMP ONE ×2 (16:14→17:43)
[2020-08-23] MEDS ORDERED: METHYLERGONOVINE 0.2 MG/ML (METHERGINE) AMP IM ONE ×2 (16:19→17:45)
[2020-08-23] MEDS ORDERED: ONDANSETRON 4 MG/2 ML (SDV) Z0FRAN IVP PRN (16:45)
[2020-08-23] MEDS ORDERED: oxyCODONE/APAP 5/325MG (PERCOCET 5) TABLET PO PRN (16:45)
[2020-08-23] MEDS ORDERED: MEASLES,MUMPS,RUBELLA 1 EA INJ SC ONE (16:45)
[2020-08-23] MEDS ORDERED: TETANUS,DIPTH,PERTUSS P/F (BOOSTRIX) 0.5 ML VIAL IM ONE (16:45)
[2020-08-23] MEDS ORDERED: BENZOCAINE/MENTHOL (DERMOPLAST) 60 ML CAN TP PRN (16:45)
--- NOTE | 2020-08-23 17:00 | NUR ---
infant cont breast feeding. mother pleased with infant's efforts. informed pt and s/o to notify RN when feeding complete for fundal massage.
--- NOTE | 2020-08-23 17:21 | NUR ---
FFu/1. lt rubra noted, no clots expressed. rubra continuous ooze with massage.
--- NOTE | 2020-08-23 17:30 | NUR ---
FFu/1. lt rubra oozing with massage. assisted up to BR. +void. lavinia-care instructions given, returned demonstration. assisted back to bed.
[2020-08-23] MEDS: KETOROLAC 30 MG/ML VIAL IVP SCH ×2 (17:36→23:56)
--- NOTE | 2020-08-23 17:42 | NUR ---
chux and lavinia pad weighed 165cc. total EBL is 665cc. Dr. Jin was called, new orders received for Methergine IM.
--- NOTE | 2020-08-23 17:49 | NUR ---
Methergine 0.2ml IM given in Rt. AT. POC reviewed with pt and s/o.
--- NOTE | 2020-08-23 18:30 | NUR ---
FFu/1. lt rubra noted. pad changed, weighed 25ml. new pad applied. pt transported to room 310 via w/c with this RN, and s/o @ side. pt stable, no sx's of distress noted. call light within reach.
--- NOTE | 2020-08-23 19:05 | NUR ---
report given to Doreen RN
--- NOTE | 2020-08-23 23:08 | OPERATIVE REPORT ---
DATE OF SERVICE: 08/23/2020 DELIVERY NOTE The patient delivered by term spontaneous vaginal delivery a viable male with Apgars of 9 and 9 at 1 and 5 minutes respectively, weight 7 pounds 4 ounces. Cord blood gas pH of 7.35 and a time of 1610. The was delivered over an intact perineum under epidural analgesia. The infant was bulb suctioned on delivery of the head and again on completion of delivery. The umbilical cord was doubly clamped, the father cut the cord, the baby was passed to mom's abdomen. Cord bloods were obtained. The placenta delivered fairly promptly spontaneously Little. It was normal with a 3-vessel cord. It was sent to pathology for permanent section. The cervix, vagina, rectum, and perineum were examined and found intact. The patient did have some uterine atony immediately after delivery, then finally responded to IV Pitocin, massage and a single dose of IM Methergine. Sponge and needle counts were correct on completion of the delivery and the post-delivery inspection. The patient tolerated the delivery well and remained in the LDR for recovery. The baby remained with the mom. Job ID: [id number] DocumentID: [id number] Dictated Date: 08/23/2020 16:48:30 Electronics Lead Date: 08/23/2020 23:07:45 Dictated By: TIKI FAROOQ MD
[2020-08-23] MEDS: DOCUSATE SODIUM 100 MG (COLACE) CAP PO SCH (23:57)
[2020-08-24 05:54] VITALS: BP 108/63
[2020-08-24] MEDS: KETOROLAC 30 MG/ML VIAL IVP SCH (05:56)
[2020-08-24 07:30] VITALS: BP 107/57
--- NOTE | 2020-08-24 07:30 | NUR ---
Pt denies any heavy bleeding. Holding - good bonding. Desire to go home later in afternoon if to be released after 24 hours.
[2020-08-24] MEDS: DOCUSATE SODIUM 100 MG (COLACE) CAP PO SCH (07:58)
--- NOTE | 2020-08-24 10:07 | Progress Note ---
Standard Progress Note Progress Notes/Assess & Plan Date Seen by a Provider: Aug 24, 2020 Time Seen by a Provider: 10:05 Progress/Assessment & Plan This patient is without complaint. She is ambulating, voiding, tolerating oral intake well and has good pain control. Patient is requesting discharge home. Vital Signs Date Time Temp Pulse Resp B/P (MAP) Pulse Ox O2 Delivery O2 Flow Rate FiO2 08/24/20 07:30 36.2 71 16 107/57 (74) 99 Room Air 08/24/20 05:54 36.8 84 18 108/63 (78) 98 Room Air 08/23/20 23:55 36.6 69 18 102/60 (74) 97 Room Air 08/23/20 20:40 36.5 70 18 110/69 (83) 96 Room Air 08/23/20 18:15 68 18 108/66 (80) Room Air 08/23/20 18:00 73 18 99/54 (69) Room Air 08/23/20 17:45 83 18 109/62 (78) Room Air 08/23/20 17:35 75 18 104/54 (71) Room Air 08/23/20 17:15 113 18 114/70 (85) Room Air 08/23/20 17:00 80 18 109/62 (78) Room Air 08/23/20 16:45 80 18 108/61 (77) Room Air 08/23/20 16:30 83 18 109/60 (76) Room Air 08/23/20 16:15 36.6 91 18 110/68 (82) Room Air 08/23/20 16:00 77 20 109/63 (78) Room Air 08/23/20 15:45 117 20 132/85 (101) Room Air 08/23/20 15:27 Non Rebreather 15.00 08/23/20 15:15 104 18 95 Room Air 08/23/20 15:00 90 18 104/64 (77) 98 Room Air 08/23/20 14:58 36.5 08/23/20 14:45 83 18 108/64 (79) 99 Room Air 08/23/20 14:30 88 18 108/61 (77) 99 Room Air 08/23/20 14:15 77 18 111/64 (80) 99 Room Air 08/23/20 14:00 101 18 108/73 (85) 100 Room Air 08/23/20 13:45 85 18 109/60 (76) 100 Room Air 08/23/20 13:30 75 18 112/58 (76) 100 Room Air 08/23/20 13:15 75 18 112/58 (76) 100 Room Air 08/23/20 13:13 36.3 08/23/20 13:00 63 18 101/62 (75) 99 Room Air 08/23/20 12:45 89 18 113/72 (86) 99 Room Air 08/23/20 12:30 70 18 111/58 (75) 99 Room Air 08/23/20 12:15 73 18 104/71 (82) 98 Room Air 08/23/20 12:00 79 18 111/69 (83) 98 Room Air 08/23/20 11:45 73 18 98 Room Air 08/23/20 11:30 78 18 104/64 (77) 97 Room Air 08/23/20 11:23 36.2 08/23/20 11:15 77 18 98 Room Air 08/23/20 11:00 77 18 105/64 (78) 98 Room Air 08/23/20 10:50 80 18 113/72 (86) 99 Room Air 08/23/20 10:45 80 18 112/68 (83) 99 Room Air 08/23/20 10:40 87 18 115/70 (85) 99 Room Air 08/23/20 10:35 76 18 112/69 (83) 99 Room Air 08/23/20 10:30 78 18 115/70 (85) 99 Room Air 08/23/20 10:25 80 18 109/65 (80) 99 Room Air 08/23/20 10:20 68 18 111/56 (74) 100 Room Air 08/23/20 10:15 81 18 112/65 (81) 100 Room Air 08/23/20 10:10 82 18 119/56 (77) 98 I & O 08/24/20 07:00 Intake Total 2000 ml Balance 2000 ml Vital signs are stable. Patient is afebrile. Fundus is firm below the umbilicus and nontender. Extremities show no clubbing or cyanosis. There is no Homans' sign. Assessment and plan post day #1 status post term spontaneous vaginal AB Plan is for routine convalescent care with discharge home at patient request Final Diagnosis 39-week spontaneous vaginal delivery TIKI FAROOQ MD Aug 24, 2020 10:07
[2020-08-24 11:45] VITALS: BP 100/59
[2020-08-24] MEDS ORDERED: IBUPROFEN 800 MG (MOTRIN) TAB PO ONE (11:48)
--- NOTE | 2020-08-24 14:07 | NUR ---
Colace and Ibuprofen called in to [facility] in [place], [place].
[2020-08-24] MEDS ORDERED: IBUPROFEN 800 MG (MOTRIN) TAB PO SCH (16:45)
--- NOTE | 2020-08-24 17:10 | NUR ---
OBTAINED ORDERS FROM DR FAROOQ FOR DISCHARGE [facility].
[2020-08-24 17:25] VITALS: BP 94/71
--- NOTE | 2020-08-24 17:36 | NUR ---
DISCHARGE INSTRUCTIONS GIVEN TO PT. DENIES QUESTIONS, VERBALIZES UNDERSTANDING. PAPERS GIVEN AND SIGNED. VSS
--- NOTE | 2020-08-24 18:00 | NUR ---
PT DISCHARGED PER AMBULATORY ACCOMPANIED BY SO AND AND NEYMAR RN. DISCHARGED TO PRIVATE VEHICLE. NO S/S DISTRESS ON DISCHARGE.
--- NOTE | 2020-08-24 22:17 | Anesthesia-Regional Post-Op ---
Regional Patient Condition Mental Status: Alert, Oriented x3 Circulation: Same as Pre-Op Headache: Absent Sensation: Full Recovery Motor Block: Absent Post Op Complications Complications None Follow Up Care/Instructions Patient Instructions None needed. Anesthesia/Patient Condition Patient is doing well, no complaints, stable vital signs, no apparent adverse anesthesia problems. No complications reported per nursing. THIEN GUILLEN CRNA Aug 24, 2020 22:17
== END 2020-08-24 18:00 | disposition home or self-care (01) | DRG 807 ==
LOC: LDRP 07:00
PROVIDERS: ADMIT Obstetrics & Gynecology; ATTEND Obstetrics & Gynecology
PROC: 10E0XZZ Delivery of Products of Conception, External Approach (ICD-10-PCS; principal; 2020-08-23)
DX: O80 Encounter for full-term uncomplicated delivery (principal); Z37.0 Single live birth; Z3A.39 39 weeks gestation of pregnancy; O75.89 Other specified complications of labor and delivery; Z20.822 Contact with and (suspected) exposure to COVID-19
CPT/HCPCS: 36415; 81000; 85025; 86850; 86900; 86901; 87635